=== PATIENT | male | born 1970 | race Caucasian/White ===

== ENCOUNTER 2016-05-12 13:18 | Emergency (ER) | payer BC ==
--- NOTE | 2016-05-17 08:16 | ER ---
ADMIT: 05/12/2016 RM/LOC: ER [facility] MR#: [id number] [address] [id number] RAMIREZ JOSE RAUL [place] [address] [place] [address] Emergency Room Report SEX: M AGE: 45 : 1970 DATE: 05/12/2016 A 45-year-old male comes into the emergency department with 2 days' worth of left-sided chest pain that goes up into the left shoulder. This has been steady for the past 48 hours. He describes it as numb sensation. He describes it as a numb sensation. He had recently traveled to [place] and [facility] [facility]. Cardiac workup was done in the Emergency Department. The results of which were negative. Toradol alleviated his pain. He was subsequent discharged with atypical chest pain, prescription for Toradol, and instructed to follow up with the primary doctor this week. Ezekiel Mccoy MD/ awilda JOB #: [id number] CC: Dickson Bustos MD, Attending Physician Odell Arce MD, Family Physician
== END 2016-05-12 15:20 | disposition home or self-care (01) ==
LOC: ER 13:18
DX: R07.89 Other chest pain (principal)